=== PATIENT | female | born 1975 | race Caucasian/White ===

== ENCOUNTER 2016-10-10 18:18 | Emergency (ER) | payer SELFPAY ==
[2016-10-10 19:05] VITALS: TEMP 97.9; BMI 21.5
[2016-10-10] MEDS ORDERED: OXYCODONE HCL 5 MG TABLET PO ONE (19:35)
--- NOTE | 2016-10-10 19:39 | EDPRACDOC ---
- General Information Chief Complaint: Back Pain Stated Complaint: BACK PAIN Time Seen by Provider: 10/10/16 19:22 Information Source: Patient Mode Of Arrival: Wheelchair Home Medications: Home Medications Cyclobenzaprine HCl [Flexeril] 10 mg PO TID #14 tablet 10/10/16 Morphine Sulfate [Morphine Sulfate ER] PO BID 10/10/16 Oxycodone HCl [Oxycodone Immediate Release] PO Q4 PRN 10/10/16 Oxycodone HCl [Oxycodone Immediate Release] PO Q4 PRN 10/10/16 Oxycodone HCl [Roxicodone] 5 mg PO Q4-6H PRN 10/10/16 Oxycodone Immediate Release [Oxycodone Immediate Release (OxyIR)] 5 - 10 mg PO Q6H PRN #15 tab 10/10/16 Prednisone [Deltasone] 20 mg PO BID #12 tablet 10/10/16 Allergies/Adverse Reactions: Allergies Allergy/AdvReac Type Severity Reaction Status Date / Time No Known Allergies Allergy Verified 10/10/16 19:35 - History of Present Illness Onset: 10/10/2016 HPI: PT VISITING FROM [facility] WITH FAMILY STATES SHE FELL DOWN THE STEPS AND HURT HER BACK. PT STATES SHE HAS LONG H/O BACK PROBLEMS AND WAS RECENTLY RELEASED FROM HOSPITAL FOR INFETION IN HER BACK. SHE STAETS SHE IS SUPPOSED TO HAVE SURGERY IN THE NEAR FUTURE FOR HER BACK PROBLEMS. SHE ALSO STATES THAT SHE HAS BEEN OUT OF HER PAIN MEDICATIONS WELL. Pain Location: Reports: Lower, Lumbar Pain Radiates To: Reports: None Pain Caused By: Reports: Fall Circumstances: Reports: Fall Relevant History: Reports: Chronic back pain Currently ?: No Pain Severity: Reports: Moderate Pain Quality: Reports: Aching Worsened By: Reports: Movement, Twisting, Walking Associated Signs and Symptoms: Reports: None ED Past Medical History - History Reviewed Yes Nurses notes reviewed and agree except as marked Travel Outside of [place] in the Last 3 Months?: No - Patient Medical History Psychological History: Denies: Depression - Social Medical History Smoking Status: Heavy tobacco smoker (5 or more cigarettes/day or daily pipe/ cigar) ETOH: None Substance Abuse: None Lives With: Other Lives In: Home EDM Review of Systems - Review of Systems ROS Negative Except as Marked: Yes All systems reviewed and were negative except as marked Constitutional: No Symptoms Reported. negative: Fever, Chills, Weakness, Fatigue, Loss of Appetite Eyes: No Symptoms Reported. negative: Redness, Blurred Vision, Double Vision, Discharge, Pain, Light Sensitive, Photophobia Ears: No Symptoms Reported. negative: Pain, Hearing Loss, Drainage, Ear Pulling Throat: No Symptoms Reported. negative: Pain, Swelling Nose: No Symptoms Reported. negative: Congestion, Bleeding, Discharge, Injection, Swelling, Deformity, Ecchymosis, Tender, Abrasion, Laceration Mouth: No Symptoms Reported. negative: Pain, Drooling Respiratory: No Symptoms Reported. negative: Cough, Brassy Cough, Barky Cough, Shortness of Breath, Wheezing, Hemoptysis Cardiovascular: No Symptoms Reported. negative: Chest Pain, Palpitations, Syncope, Edema, Orthopnea, PND, Skin Mottling, Cyanosis Gastrointestinal: No Symptoms Reported. negative: Pain, Constipation, Nausea, Vomiting, Diarrhea, Melena, Formula Intolerance Genitourinary: No Symptoms Reported. negative: Dysuria, Hematuria, Frequency, Discharge, Bleeding, Testicular Pain, Neurological: No Symptoms Reported. negative: Headache, Dizziness, Seizure, Numbness, Weakness, Speech Difficulty, Gait Difficulty Musculoskeletal: Back. negative: Arm, Ankle, Chestwall, Elbow, Forearm, Femur, Foot, Hand, Hip, Knee, Leg, Neck, Pelvis, Ribs, Shoulder, Wrist Integumentary: No Symptoms Reported. negative: Itching, Rash, Bruising, Wound Allergic/Immunologic: No Symptoms Reported. negative: Hives, Itching Hematologic: No Symptoms Reported. negative: Lymphadenopathy, Easy Bruising, Easy Bleeding Endocrine: No Symptoms Reported. negative: Weight Gain, Weight Loss Psychiatric: No Symptoms Reported. negative: Anxiety, Depression, Hallucinations, Insomnia, Suicidal - Physical Exam Constitutional: Alert (Awake), No apparent distress Oriented to: Time, Person, Place Last recorded Vital Signs: Last Vital Signs Temp 97.9 F 10/10/16 19:01 Pulse 111 10/10/16 19: Resp 16 10/10/16 19:01 BP 150/87 10/10/16 19:01 Pulse Ox 96 10/10/16 19:01 Oxygen Pulse Oxygen Saturation 96 O2 Device Room Air Oxygen Flow Rate Fraction of Inspired Oxygen ( FIO2) - HEENT Head: Normal ( normocephalic) Eye Exam: Normal (PERRL, EOMI, Sclera white) Oropharynx: Normal (Pharynx:Moist without exudate,Gums-no swelling) Tympanic Membrane: Normal ENT EAC: Normal TMJ: Normal Nose: No Symptoms Reported (septum midline) Neck: Normal (FROM, trachea at midline) - Respiratory/Cardiovascular Respiratory: Normal - CTA (BBS clear to auscultation without adventitious sounds ) Cardiovascular: Normal (RRR without murmur, gallop or rub) - GI Auscultation: Normal (NABS) Palpation: Normal (Soft,No rebound or guarding, non distended) Tenderness: Non tender Mares's Sign: Negative - Musculoskeletal Back: Normal (Non-Tender) Extremities: Normal (Normal tone, Pulses 2+ No cyanosis or edema, FROM) - Integumentary Skin: Normal, Warm, Dry Lymphatics: Normal (no adenopathy) - Neurologic Memory Impaired: Normal Motor Function: Normal (Normal tone, Pulses 2+ No cyanosis or edema, FROM) Cranial Nerve: Normal (CN II-X11 intact sensation, strength 5/5) Cerebellar: Normal Mood Description: Normal Perception: Normal ED Back Exam - Neurologic Motor Deficit: None Reflexes: Normal - Musculoskeletal Cervical: Normal Thoracic: Normal Lumbar: Tender Midline: Tender Paraspinous: Tender, Limited ROM Pelvis: Normal - Differential Diagnosis Fracture, Musculoskeletal pain, Strain - Diagnostic Imaging LSPINE Image interpreted by: Radiologist IMPRESSION: Mild degenerative changes but no acute bony findings. Decision Time to Discharge: 20:28 - Departure Disposition: Home Condition: Stable Final Diagnosis: Acute exacerbation of chronic low back pain Instructions: Core Strengthening Exercises (GEN), Back Pain, Thoracic (Lumbar) Strain Education/Counseling Given To: Patient Education/Counseling Given Regarding: Diagnosis, Treatment, Prognosis, Follow Up Referrals: None,No Provider [Primary Care Provider] - One Week Prescriptions: Cyclobenzaprine HCl [Flexeril] 10 mg PO TID #14 tablet Oxycodone Immediate Release [Oxycodone Immediate Release (OxyIR)] 5 - 10 mg PO Q6H PRN #15 tab PRN Reason: Pain Prednisone [Deltasone] 20 mg PO BID #12 tablet
--- NOTE | 2016-10-10 20:21 | DIRPT ---
CLINICAL DATA: Fell down steps today. Injured back. EXAM: LUMBAR SPINE - COMPLETE 4+ VIEW COMPARISON: None. FINDINGS: Normal alignment of the lumbar vertebral bodies. Mild degenerative disc disease and facet disease but no acute bony findings or compression fracture. No definite pars defects. The visualized bony pelvis is intact. Surgical changes noted in the left upper quadrant. IMPRESSION: Mild degenerative changes but no acute bony findings. Electronically Signed By: Elizabeth Grimes M.D. On: 10/10/2016 20:18
[2016-10-10 20:35] VITALS: BP 149/80; PULSE 110
== END 2016-10-10 20:45 | disposition home or self-care (01) ==
LOC: EDMC 18:18
DX: M54.5 Low back pain (principal)
CPT/HCPCS: 72110; 99282; J3490